=== PATIENT | female | born 1955 | race Caucasian/White ===

== ENCOUNTER 2021-05-12 20:54 | Observation (INO) | payer OTHER, MEDICARE ==
[2021-05-12] MEDS ORDERED: Sodium Chloride 0.9% 10 ML Syringe FLUSH PRN (20:57)
[2021-05-12] MEDS ORDERED: Sodium Chloride 0.9% 1,000 ML IV ONE ×2 (21:08→22:45)
[2021-05-12] MEDS ORDERED: cefTRIAXone 1 GM in Sodium Chloride 0.9% 100 ML IV ONE (21:09)
--- NOTE | 2021-05-12 21:17 | EDM.PDOC ---
ED HPI GENERAL MEDICAL PROBLEM - General Chief Complaint: Genitourinary Problem Stated Complaint: UTI Time Seen by Provider: 05/12/21 21:09 Source of Information: Reports: Patient History Limitations: Reports: No Limitations - History of Present Illness INITIAL COMMENTS - FREE TEXT/NARRATIVE: Patient comes to ER with ongoing UTI complaints. Was seen at [facility] and started on Macrobid for UTI. She thinks she was diagnosed with an E Coli UTI. Was not getting better and course of Macrobid extended. Is still having some burning with urination. Today had low grade temp of 101 about one hour ago which was accompanied by chills. Now starting to have some bilateral low back discomfort. Mild headache. Decreased appetite. Nausea earlier but no vomiting/diarrhea. No hematuria. - Related Data Allergies Allergy/AdvReac Type Severity Reaction Status Date / Time No Known Allergies Allergy Verified 05/12/21 20:57 Home Meds: Home Meds Aspirin 81 mg PO DAILY 05/12/21 [History] Cholecalciferol (Vitamin D3) [Vitamin D3] 2,000 unit PO BID 05/12/21 [History] Fenofibrate Nanocrystallized [Tricor] 145 mg PO DAILY 05/12/21 [History] Furosemide 40 mg PO DAILY 05/12/21 [History] Levothyroxine [Synthroid] 50 mcg PO ACBREAKFAST 05/12/21 [History] Metoprolol Tartrate 12.5 mg PO DAILY@1800 05/12/21 [History] Metoprolol Tartrate 25 mg PO DAILY 05/12/21 [History] metFORMIN HCl [Metformin HCl] 500 mg PO BIDAC 05/12/21 [History] Past Medical History Cardiovascular History: Reports: High Cholesterol, Hypertension Endocrine/Metabolic History: Reports: Diabetes, Type II, Hypothyroidism Social & Family History - Family History Family Medical History: No Pertinent Family History - Tobacco Use Tobacco Use Status *Q: Former Tobacco User Tobacco Use Within Last Twelve Months: No Used Tobacco, but Quit: Yes Tobacco Use Comment: quit 40 years ago. Smoked for about one year per self report. - Caffeine Use Caffeine Use: Reports: Soda - Alcohol Use Alcohol Use History: No - Recreational Drug Use Recreational Drug Use: No Drug Use in Last 12 Months: No ED ROS GENERAL - Review of Systems Review Of Systems: See Below Constitutional: Reports: Fever, Chills, Malaise, Decreased Appetite. Denies: Night Sweats, Diaphoresis HEENT: Reports: No Symptoms, Glasses Respiratory: Reports: No Symptoms Cardiovascular: Reports: No Symptoms GI/Abdominal: Reports: Decreased Appetite, Nausea. Denies: Abdominal Pain, Constipation, Diarrhea, Difficulty Swallowing, Distension, Hematemesis, Hematochezia, Vomiting : Reports: Dysuria. Denies: Flank Pain, Frequency, Hematuria, Incontinence, Urinary Retention Musculoskeletal: Reports: Other (no acute changes from baseline other than bilateral low back discomfort) Skin: Reports: No Symptoms Neurological: Reports: Headache Psychiatric: Reports: No Symptoms ED EXAM, GENERAL - Physical Exam Exam: See Below Exam Limited By: No Limitations General Appearance: Alert, WD/WN, Other (appears mildly uncomfortable) Eye Exam: Bilateral Eye: EOMI, PERRL Ears: Normal External Exam, Normal Canal, Hearing Grossly Normal Nose: Normal Inspection, Normal Mucosa Throat/Mouth: Normal Inspection, Normal Lips, Normal Teeth, Normal Voice, No Airway Compromise Head: Atraumatic, Normocephalic Neck: Normal Inspection, Supple, Non-Tender, Full Range of Motion Respiratory/Chest: No Respiratory Distress, Lungs Clear, Normal Breath Sounds, No Accessory Muscle Use Cardiovascular: No Murmur, Tachycardia GI/Abdominal: Soft, Non-Tender, No Distention, Other (diminished bowel sounds throughout) (Female) Exam: Deferred Rectal (Female) Exam: Deferred Back Exam: Normal Inspection. No: CVA Tenderness (L), CVA Tenderness (R), Muscle Spasm, Paraspinal Tenderness, Vertebral Tenderness Extremities: Normal Range of Motion, Non-Tender, Slow Capillary Refill (3-4 seconds) Neurological: Alert, Oriented, Normal Cognition, Normal Gait, No Motor/Sensory Deficits Psychiatric: Normal Affect, Normal Mood Skin Exam: Warm, Dry, Intact, Normal Color Course - Orders/Labs/Meds Orders: Active Orders 24 hr Category Date Time Status CULTURE BLOOD [BC] Stat Lab 05/12/21 21:07 Ordered CULTURE BLOOD [BC] Stat Lab 05/12/21 21:20 Received UA W/MICROSCOPIC [URIN] Stat Lab 05/12/21 20:57 Ordered Sodium Chloride 0.9% [Normal Saline] 1,000 ml Med 05/12/21 21:08 Active IV .BOLUS Sodium Chloride 0.9% [Saline Flush] Med 05/12/21 20:57 Active 10 ml FLUSH ASDIRECTED PRN Blood Culture x2 Reflex Set [OM.PC] Stat Oth 05/12/21 21:07 Ordered Saline Lock Insert [OM.PC] Routine Oth 05/12/21 20:57 Ordered Medication Orders Acetaminophen (Acetaminophen 325 Mg Tab) 650 mg PO Q4H PRN PRN Reason: Pain (Mild 1-3)/fever Aspirin (Aspirin 81 Mg Tab.Chew) 81 mg PO DAILY JULIANNE Fenofibrate (Fenofibrate,Micronized 134 Mg Cap) 134 mg PO DAILY JULIANNE Furosemide (Furosemide 40 Mg Tab) 40 mg PO DAILY JULIANNE Sodium Chloride (Normal Saline) 1,000 mls @ 999 mls/hr IV .BOLUS ONE Stop: 05/12/21 22:08 Ceftriaxone Sodium 1 gm/ (Sodium Chloride) 100 mls @ 200 mls/hr IV Q24H JULIANNE Sodium Chloride (Normal Saline) 1,000 mls @ 250 mls/hr IV .BOLUS ONE Stop: 05/13/21 02:44 Sodium Chloride (Normal Saline) 1,000 mls @ 75 mls/hr IV ASDIRECTED JULIANNE Levothyroxine Sodium (Levothyroxine 50 Mcg Tab) 50 mcg PO ACBREAKFAST JULIANNE Metformin HCl (Metformin 500 Mg Tab) 500 mg PO BIDAC JULIANNE Metoprolol Tartrate (Metoprolol Tartrate 25 Mg Tab) 12.5 mg PO DAILY@1800 JULIANNE Metoprolol Tartrate (Metoprolol Tartrate 25 Mg Tab) 25 mg PO DAILY JULIANNE Ondansetron HCl (Ondansetron 4 Mg/2 Ml Sdv) 4 mg IVPUSH Q6H PRN PRN Reason: Nausea/Vomiting Sodium Chloride (Sodium Chloride 0.9% 10 Ml Syringe) 10 ml FLUSH ASDIRECTED PRN PRN Reason: Keep Vein Open Labs: Laboratory Tests 05/12/21 Range/Units 20:57 Urine Color Yellow Urine Appearance Clear Urine pH 7.0 (5.0-9.0) Ur Specific [place] 1.025 (1.005-1.030) Urine Protein Negative (NEGATIVE) mg/dL Urine Glucose (UA) Negative (NEGATIVE) mg/dL Urine Ketones Negative (NEGATIVE) mg/dL Urine Occult Blood Small H (NEGATIVE) Urine Nitrite Negative (NEGATIVE) Urine Bilirubin Negative (NEGATIVE) Urine Urobilinogen 0.2 (0.2-1.0) E.U./dL Ur Leukocyte Esterase Trace H (NEGATIVE) Meds: Medications Generic Name Dose Route Start Last Admin Trade Name Armando PRN Reason Stop Dose Admin Acetaminophen 650 mg 05/12/21 21:38 Acetaminophen 325 Mg Tab PO Q4H PRN Pain (Mild 1-3)/fever Aspirin 81 mg 05/13/21 08:00 Aspirin 81 Mg Tab.Chew PO DAILY [facility] Fenofibrate 134 mg 05/13/21 08:00 Fenofibrate,Micronized 134 Mg Cap PO DAILY JULIANNE Furosemide 40 mg 05/13/21 08:00 Furosemide 40 Mg Tab PO DAILY JULIANNE Sodium Chloride 1,000 mls @ 999 mls/hr 05/12/21 21:08 Normal Saline IV 05/12/21 22:08 .BOLUS ONE Ceftriaxone Sodium 1 gm/ 100 mls @ 200 mls/hr 05/13/21 21:00 Sodium Chloride IV Q24H JULIANNE Sodium Chloride 1,000 mls @ 250 mls/hr 05/12/21 22:45 Normal Saline IV 05/13/21 02:44 .BOLUS ONE Sodium Chloride 1,000 mls @ 75 mls/hr 05/13/21 03:00 Normal Saline IV ASDIRECTED [facility] Levothyroxine Sodium 50 mcg 05/13/21 07:30 Levothyroxine 50 Mcg Tab PO ACBREAKFAST [facility] Metformin HCl 500 mg 05/13/21 07:30 Metformin 500 Mg Tab PO BIDAC [facility] Metoprolol Tartrate 12.5 mg 05/13/21 18:00 Metoprolol Tartrate 25 Mg Tab PO DAILY@1800 [facility] Metoprolol Tartrate 25 mg 05/13/21 08:00 Metoprolol Tartrate 25 Mg Tab PO DAILY [facility] Ondansetron HCl 4 mg 05/12/21 21:38 Ondansetron 4 Mg/2 Ml Sdv IVPUSH Q6H PRN Nausea/Vomiting Sodium Chloride 10 ml 05/12/21 20:57 Sodium Chloride 0.9% 10 Ml Syringe FLUSH ASDIRECTED PRN Keep Vein Open Discontinued Medications Generic Name Dose Route Start Last Admin Trade Name Armando PRN Reason Stop Dose Admin Ceftriaxone Sodium 1 gm/ 100 mls @ 200 mls/hr 05/12/21 21:09 Sodium Chloride IV 05/12/21 21:38 ONETIME ONE - Re-Assessments/Exams Free Text/Narrative Re-Assessment/Exam: 05/12/21 21:23 Patient unable to void to provide new UA/UC. Suspect worsening UTI/possible pyelonephritis based on history/complaints/exam. Given that she has now developed a low grade temp/mild pulse elevation recommend observation admission for Rocephin and IV fluids. Patient agreeable. Blood cultures pending. 05/12/21 22:03 Normal WBC and Lactic. Patient able to void and give UA specimen. 05/12/21 22:08 UA continues to show presence of WBCs/RBCs/leuk esterase. UC pending. Departure - Departure Time of Disposition: 21:20 Disposition: Refer to Observation Condition: Good Clinical Impression: Pyelonephritis - Discharge Information *PRESCRIPTION DRUG MONITORING PROGRAM REVIEWED*: Not Applicable *COPY OF PRESCRIPTION DRUG MONITORING REPORT IN PATIENT GEOVANNY: Not Applicable - Problem List & Annotations (1) Pyelonephritis SNOMED Code(s): 60553894 Code(s): N12 - TUBULO-INTERSTITIAL NEPHRITIS, NOT SPCF ACUTE OR CHRONIC Status: Acute Priority: High Current Visit: Yes Annotation/Comment:: Suspected based on history/presentation/exam. Recent UTI treated with Macrobid, patient reports symptoms did not completely resolve. UA sample shows continued presence of WBCs/RBCs and leukocyte esterase. Initiate Rocephin IV. Assess patient response. (2) Dehydration, mild SNOMED Code(s): 5826332406916 Code(s): E86.0 - DEHYDRATION Status: Acute Priority: Medium Current Visit: Yes Annotation/Comment:: Decreased PO intake/low grade fever. Mild tachycardia. IV NS bolus ordered. (3) HTN (hypertension) SNOMED Code(s): 21888692 Code(s): I10 - ESSENTIAL (PRIMARY) HYPERTENSION Status: Chronic Priority: Low Current Visit: No Annotation/Comment:: Continue Metoprolol and laxis/home medication and observe trends. Qualifiers: Hypertension type: primary hypertension Qualified Code(s): I10 - Essential (primary) hypertension (4) DM type 2 (diabetes mellitus, type 2) SNOMED Code(s): 16357118 Code(s): E11.9 - TYPE 2 DIABETES MELLITUS WITHOUT COMPLICATIONS Status: Chronic Priority: Low Current Visit: No Annotation/Comment:: Continue Metformin Qualifiers: Diabetes mellitus group home insulin use: without group home use Diabetes mellitus complication status: without complication Qualified Code(s): E11.9 - Type 2 diabetes mellitus without complications (5) Hypothyroid SNOMED Code(s): 76129210 Code(s): E03.9 - HYPOTHYROIDISM, UNSPECIFIED Status: Chronic Priority: Low Current Visit: No Annotation/Comment:: Continue Synthroid/home medication Qualifiers: Hypothyroidism type: unspecified Qualified Code(s): E03.9 - Hypothyroidism, unspecified (6) Hyperlipidemia SNOMED Code(s): 75249820 Code(s): E78.5 - HYPERLIPIDEMIA, UNSPECIFIED Status: Chronic Priority: Low Current Visit: No Annotation/Comment:: Continue home medication Fenofibrate Qualifiers: Hyperlipidemia type: unspecified Qualified Code(s): E78.5 - Hyperlipidemia, unspecified - My Orders Last 24 Hours: My Active Orders 05/12/21 20:57 UA W/MICROSCOPIC [URIN] Stat Sodium Chloride 0.9% [Saline Flush] 10 ml FLUSH ASDIRECTED PRN Saline Lock Insert [OM.PC] Routine 05/12/21 21:07 CULTURE BLOOD [BC] Stat Blood Culture x2 Reflex Set [OM.PC] Stat 05/12/21 21:08 Sodium Chloride 0.9% [Normal Saline] 1,000 ml IV .BOLUS 05/12/21 21:20 CULTURE BLOOD [BC] Stat - Assessment/Plan Admission H&P: Please use this note as an admission H&P Last 24 Hours: My Active Orders 05/12/21 20:57 UA W/MICROSCOPIC [URIN] Stat Sodium Chloride 0.9% [Saline Flush] 10 ml FLUSH ASDIRECTED PRN Saline Lock Insert [OM.PC] Routine 05/12/21 21:07 CULTURE BLOOD [BC] Stat Blood Culture x2 Reflex Set [OM.PC] Stat 05/12/21 21:08 Sodium Chloride 0.9% [Normal Saline] 1,000 ml IV .BOLUS 05/12/21 21:20 CULTURE BLOOD [BC] Stat Assessment:: as above. Patient stable and suitable for general supervision Plan: as above. Anticipate 24-48 hours stay while assessing response to IV fluids and Rocephin. Patient can be discharged home on oral antibiotics once she is impro ving.
[2021-05-12] MEDS ORDERED: Ondansetron 4 MG/2 ML SDV IVPUSH PRN (21:38)
[2021-05-12 21:44] LABS: ANION GAP 12.7 meq/L (7-15)
[2021-05-12] MEDS ORDERED: Ketorolac 15 MG/ML SDV IVPUSH PRN (22:14)
[2021-05-13] MEDS ORDERED: Sodium Chloride 0.9% 1,000 ML IV SCH (03:00)
[2021-05-13] MEDS: Acetaminophen 325 MG Tab PO PRN ×2 (04:15→09:58)
[2021-05-13] MEDS ORDERED: metFORMIN 500 MG Tab PO SCH (07:30)
[2021-05-13] MEDS ORDERED: Levothyroxine 50 MCG Tab PO SCH (07:30)
[2021-05-13] MEDS ORDERED: Metoprolol Tartrate 25 MG Tab PO SCH ×2 (08:00→18:00)
[2021-05-13] MEDS ORDERED: Fenofibrate,Micronized 134 MG Cap PO SCH (08:00)
[2021-05-13] MEDS ORDERED: Furosemide 40 MG Tab PO SCH (08:00)
[2021-05-13] MEDS ORDERED: Aspirin 81 MG Tab.Chew PO SCH (08:00)
[2021-05-13] MEDS ORDERED: cefTRIAXone 1 GM in Sodium Chloride 0.9% 100 ML IV ONE (11:07)
--- NOTE | 2021-05-13 11:14 | PCM.DCSUM1 ---
Discharge Summary - Discharge Data Discharge Date: 05/13/21 Discharge Disposition: Home, Self-Care 01 Condition: Good - Referral to Home Health Primary Care Physician: DEBBY Suggs - Discharge Diagnosis/Problem(s) (1) Pyelonephritis SNOMED Code(s): 68572867 ICD Code: N12 - TUBULO-INTERSTITIAL NEPHRITIS, NOT [facility] ACUTE OR CHRONIC Status: Acute Priority: High Current Visit: Yes Problem Details: Suspected based on history/presentation/exam. Recent UTI treated with Macrobid, patient reports symptoms did not completely resolve. UA sample shows continued presence of WBCs/RBCs and leukocyte esterase. Initiate Rocephin IV. Assess patient response. (2) DM type 2 (diabetes mellitus, type 2) SNOMED Code(s): 46177333 ICD Code: E11.9 - TYPE 2 DIABETES MELLITUS WITHOUT COMPLICATIONS Status: Chronic Priority: Low Current Visit: No Problem Details: Continue Metformin Qualifiers: Diabetes mellitus ad terminal makeup operator insulin use: without senior care use Diabetes mellitus complication status: without complication Qualified Code(s): E11.9 - Type 2 diabetes mellitus without complications (3) HTN (hypertension) SNOMED Code(s): 19947551 ICD Code: I10 - ESSENTIAL (PRIMARY) HYPERTENSION Status: Chronic Priority: Low Current Visit: No Problem Details: Continue Metoprolol and laxis/home medication and observe trends. Qualifiers: Hypertension type: primary hypertension Qualified Code(s): I10 - Essential (primary) hypertension (4) Hyperlipidemia SNOMED Code(s): 57879689 ICD Code: E78.5 - HYPERLIPIDEMIA, UNSPECIFIED Status: Chronic Priority: Low Current Visit: No Problem Details: Continue home medication Fenofibrate Qualifiers: Hyperlipidemia type: unspecified Qualified Code(s): E78.5 - Hyperlipidemia, unspecified (5) Hypothyroid SNOMED Code(s): 07782677 ICD Code: E03.9 - HYPOTHYROIDISM, UNSPECIFIED Status: Chronic Priority: Low Current Visit: No Problem Details: Continue Synthroid/home medication Qualifiers: Hypothyroidism type: unspecified Qualified Code(s): E03.9 - Hypothyroidism, unspecified - Patient Summary/Data Hospital Course: This patient was admitted into the hospital overnight for concerns of pyelonephritis. This patient was treated in the outpatient setting with nitrofurantoin for a urinary tract infection. She ended up with systemic complaints of fever and flank pain. She had some nausea and vomiting. She had a normal white blood cell count as well as lactic acid when she was seen in the emergency department. Her urinalysis was concerning for a UTI and with the clinical picture for pyelonephritis. She was placed in observation overnight with Rocephin 1 g every 12. She was hydrated gently throughout the night. She feels quite a bit better this morning. She has not had a fever since in the night. She is eating and drinking no nausea or vomiting. Urine culture is still pending. We will discharge her home at this time on Keflex 500 mg p.o. 4 times daily for the next 7 days. Discussed with the patient the plan of care as well as when to return especially if she is unable to keep her meds down recurrent nausea vomiting and uncontrolled fever. She is comfortable with this plan and her questions are answered. - Patient Instructions Diet: Heart Healthy Diet, Drink 8-10+ Glasses/Day Other/Special Instructions: Home rest over the next few days. Drink plenty of fluids especially electrolyte containing materials as well as water. If you are not urinating every 2-3 hours you are not drinking enough fluids. Tylenol and/or ibuprofen as needed for pain fever discomfort. Keflex 500 mg 1 tab p.o. 4 times daily for the next 7 days. Prescription sent to [facility] pharmacy. Zofran 1 tablet by mouth every 6 hrs as needed for nausea vomiting. Rx sent to [facility]. Finish the antibiotics no matter what. Recheck in the clinic in 1 week for recheck. Return to the emergency department new or worsening symptoms especially uncontrolled fever recurrent nausea vomiting or inability to tolerate the antibiotics. - Discharge Plan *PRESCRIPTION DRUG MONITORING PROGRAM REVIEWED*: Not Applicable *COPY OF PRESCRIPTION DRUG MONITORING REPORT IN PATIENT GEOVANNY: Not Applicable Prescriptions/Med Rec: cephALEXin [Cephalexin] 500 mg PO QID #28 capsule Home Medications: Home Meds Aspirin 81 mg PO DAILY 05/12/21 [History] Cholecalciferol (Vitamin D3) [Vitamin D3] 2,000 unit PO BID 05/12/21 [History] Fenofibrate Nanocrystallized [Tricor] 145 mg PO DAILY 05/12/21 [History] Furosemide 40 mg PO DAILY 05/12/21 [History] Levothyroxine [Synthroid] 50 mcg PO ACBREAKFAST 05/12/21 [History] Metoprolol Tartrate 12.5 mg PO DAILY@1800 05/12/21 [History] Metoprolol Tartrate 25 mg PO DAILY 05/12/21 [History] metFORMIN HCl [Metformin HCl] 500 mg PO BIDAC 05/12/21 [History] cefTRIAXone [Rocephin] 1 gm IV Q24H vial 05/13/21 [Rx] cephALEXin [Cephalexin] 500 mg PO QID #28 capsule 05/13/21 [Rx] Forms: ED Department Discharge Referrals: Sosa Jimenez PA [Primary Care Provider] - - Discharge Summary/Plan Comment DC Time >30 min.: No Total # of Minutes for Discharge Time: 25 - General Info Date of Service: 05/13/21 Admission Dx/Problem (Free Text: Pyelonephritis diagnosed in the ER previously. Failed outpatient UTI with Macrobid Functional Status: Reports: Pain Controlled, Tolerating Diet, Ambulating, Urinating. Denies: New Symptoms - Review of Systems General: Reports: Fever (Subjective fever throughout the night. Fever of 101.4 at 0400 hrs. this morning. Normal temperature this morning.) HEENT: Reports: No Symptoms Pulmonary: Reports: No Symptoms Cardiovascular: Reports: No Symptoms Gastrointestinal: Reports: No Symptoms Genitourinary: Reports: Frequency. Denies: Dysuria, Burning, Urgency, Incontinence Musculoskeletal: Reports: Other (She does have some left flank pain) Skin: Reports: No Symptoms Neurological: Reports: No Symptoms Psychiatric: Reports: No Symptoms - Patient Data Vitals - Most Recent: Last Vital Signs Temp 99.2 F 05/13/21 07:34 Pulse 101 H 05/13/21 07:34 Resp 18 05/13/21 07:34 BP 152/94 H 05/13/21 07:34 Pulse Ox 94 L 05/13/21 07:34 Weight - Most Recent: 140 lb I&O - Last 24 hours: Intake & Output 05/12/21 05/13/21 05/13/21 22:59 06:59 14:59 Intake Total 2252 Balance 2252 Lab Results - Last 24 hrs: Laboratory Results - last 24 hr 05/12/21 05/12/21 05/12/21 Range/Units 20:57 21:20 21:20 WBC 9.4 (4.0-10.2) K/uL RBC 4.40 (3.77-5.09) M/uL Hgb 12.2 (11.7-15.5) g/dL Hct 38.0 (34.0-46.0) % MCV 86.4 (84.0-98.0) fL MCH 27.7 L (28.2-33.3) pg MCHC 32.1 (31.7-36.0) g/dL RDW 13.4 (11.2-14.1) % Plt Count 317 (150-350) K/uL Neut % (Auto) 88.6 H (45.0-80.0) % Lymph % (Auto) 2.2 L (10.0-50.0) % Lucas % (Auto) 5.9 (2.0-14.0) % Eos % (Auto) 3.1 (0.0-5.0) % Baso % (Auto) 0.2 (0.0-2.0) % Neut # (Auto) 8.28 H (1.40-7.00) K/uL Lymph # (Auto) 0.21 L (0.50-3.50) K/uL Lucas # (Auto) 0.55 (0.00-1.00) K/uL Eos # (Auto) 0.29 (0.00-0.50) K/uL Baso # (Auto) 0.02 (0.00-0.20) K/uL Sodium 137 (136-145) mmol/L Potassium 3.6 (3.5-5.1) mmol/L Chloride 100 (98-107) mmol/L Carbon Dioxide 24.3 (21.0-32.0) mmol/L Anion Gap 12.7 (7-15) meq/L BUN 16 (7-18) mg/dL Creatinine 1.12 (0.51-1.17) mg/dL Est Cr Clr Drug Dosing 43.86 mL/min Estimated GFR (MDRD) 49 mL/min Glucose 215 H (70-99) mg/dL POC Glucose (70-99) mg/dL Lactic Acid (0.4-2.0) mmol/L Calcium 9.8 (8.5-10.1) mg/dL Magnesium 1.8 (1.8-2.4) mg/dL Total Bilirubin 0.3 (0.2-1.0) mg/dL AST 37 (15-37) U/L ALT 32 (12-78) U/L Alkaline Phosphatase 69 (46-116) IU/L Total Protein 8.2 (6.4-8.2) g/dL Albumin 4.0 (3.4-5.0) g/dL Specimen Type Urinblad Urine Color Yellow Urine Appearance Clear Urine pH 7.0 (5.0-9.0) Ur Specific [place] 1.025 (1.005-1.030) Urine Protein Negative (NEGATIVE) mg/dL Urine Glucose (UA) Negative (NEGATIVE) mg/dL Urine Ketones Negative (NEGATIVE) mg/dL Urine Occult Blood Small H (NEGATIVE) Urine Nitrite Negative (NEGATIVE) Urine Bilirubin Negative (NEGATIVE) Urine Urobilinogen 0.2 (0.2-1.0) E.U./dL Ur Leukocyte Esterase Trace H (NEGATIVE) Urine RBC 5-10 H /HPF Urine WBC 5-10 H /HPF Ur Epithelial Cells Few /LPF Urine Bacteria Few (NONE TO FEW) /HPF Urine Mucus Few H (NEGATIVE) /LPF 05/12/21 05/13/21 Range/Units 21:20 07:39 WBC (4.0-10.2) K/uL RBC (3.77-5.09) M/uL Hgb (11.7-15.5) g/dL Hct (34.0-46.0) % MCV (84.0-98.0) fL MCH (28.2-33.3) pg MCHC (31.7-36.0) g/dL RDW (11.2-14.1) % Plt Count (150-350) K/uL Neut % (Auto) (45.0-80.0) % Lymph % (Auto) (10.0-50.0) % Lucas % (Auto) (2.0-14.0) % Eos % (Auto) (0.0-5.0) % Baso % (Auto) (0.0-2.0) % Neut # (Auto) (1.40-7.00) K/uL Lymph # (Auto) (0.50-3.50) K/uL Lucas # (Auto) (0.00-1.00) K/uL Eos # (Auto) (0.00-0.50) K/uL Baso # (Auto) (0.00-0.20) K/uL Sodium (136-145) mmol/L Potassium (3.5-5.1) mmol/L Chloride (98-107) mmol/L Carbon Dioxide (21.0-32.0) mmol/L Anion Gap (7-15) meq/L BUN (7-18) mg/dL Creatinine (0.51-1.17) mg/dL Est Cr Clr Drug Dosing mL/min Estimated GFR (MDRD) mL/min Glucose (70-99) mg/dL POC Glucose 134 H (70-99) mg/dL Lactic Acid 1.5 (0.4-2.0) mmol/L Calcium (8.5-10.1) mg/dL Magnesium (1.8-2.4) mg/dL Total Bilirubin (0.2-1.0) mg/dL AST (15-37) U/L ALT (12-78) U/L Alkaline Phosphatase (46-116) IU/L Total Protein (6.4-8.2) g/dL Albumin (3.4-5.0) g/dL Specimen Type Urine Color Urine Appearance Urine pH (5.0-9.0) Ur Specific [place] (1.005-1.030) Urine Protein (NEGATIVE) mg/dL Urine Glucose (UA) (NEGATIVE) mg/dL Urine Ketones (NEGATIVE) mg/dL Urine Occult Blood (NEGATIVE) Urine Nitrite (NEGATIVE) Urine Bilirubin (NEGATIVE) Urine Urobilinogen (0.2-1.0) E.U./dL Ur Leukocyte Esterase (NEGATIVE) Urine RBC /HPF Urine WBC /HPF Ur Epithelial Cells /LPF Urine Bacteria (NONE TO FEW) /HPF Urine Mucus (NEGATIVE) /LPF Med Orders - Current: Current Medications Acetaminophen (Acetaminophen 325 Mg Tab) 650 mg PO Q4H PRN PRN Reason: Pain (Mild 1-3)/fever Last Admin: 05/13/21 09:58 Dose: 650 mg Documented by: Aspirin (Aspirin 81 Mg Tab.Chew) 81 mg PO DAILY [facility] Last Admin: 05/13/21 07:34 Dose: 81 mg Documented by: Fenofibrate (Fenofibrate,Micronized 134 Mg Cap) 134 mg PO DAILY [facility] Last Admin: 05/13/21 07:34 Dose: 134 mg Documented by: Furosemide (Furosemide 40 Mg Tab) 40 mg PO DAILY [facility] Last Admin: 05/13/21 07:33 Dose: 40 mg Documented by: Ceftriaxone Sodium 1 gm/ (Sodium Chloride) 100 mls @ 200 mls/hr IV Q24H [facility] Sodium Chloride (Normal Saline) 1,000 mls @ 75 mls/hr IV ASDIRECTED [facility] Last Admin: 05/13/21 06:51 Dose: 75 mls/hr Documented by: Ceftriaxone Sodium 1 gm/ (Sodium Chloride) 100 mls @ 200 mls/hr IV ONETIME ONE Stop: 05/13/21 11:36 Ketorolac Tromethamine (Ketorolac 15 Mg/Ml Sdv) 15 mg IVPUSH Q6H PRN PRN Reason: Pain Stop: 05/17/21 22:14 Last Admin: 05/13/21 00:25 Dose: 15 mg Documented by: Levothyroxine Sodium (Levothyroxine 50 Mcg Tab) 50 mcg PO ACBREAKFAST [facility] Last Admin: 05/13/21 07:34 Dose: 50 mcg Documented by: Metformin HCl (Metformin 500 Mg Tab) 500 mg PO BIDAC [facility] Last Admin: 05/13/21 07:33 Dose: 500 mg Documented by: Metoprolol Tartrate (Metoprolol Tartrate 25 Mg Tab) 12.5 mg PO DAILY@1800 [facility] Metoprolol Tartrate (Metoprolol Tartrate 25 Mg Tab) 25 mg PO DAILY [facility] Last Admin: 05/13/21 07:33 Dose: 25 mg Documented by: Ondansetron HCl (Ondansetron 4 Mg/2 Ml Sdv) 4 mg IVPUSH Q6H PRN PRN Reason: Nausea/Vomiting Sodium Chloride (Sodium Chloride 0.9% 10 Ml Syringe) 10 ml FLUSH ASDIRECTED PRN PRN Reason: Keep Vein Open Discontinued Medications Sodium Chloride (Normal Saline) 1,000 mls @ 999 mls/hr IV .BOLUS ONE Stop: 05/12/21 22:08 Last Admin: 05/12/21 22:03 Dose: 999 mls/hr Documented by: Ceftriaxone Sodium 1 gm/ (Sodium Chloride) 100 mls @ 200 mls/hr IV ONETIME ONE Stop: 05/12/21 21:38 Last Admin: 05/12/21 22:08 Dose: 200 mls/hr Documented by: Sodium Chloride (Normal Saline) 1,000 mls @ 250 mls/hr IV .BOLUS ONE Stop: 05/13/21 02:44 Last Admin: 05/13/21 02:36 Dose: 250 mls/hr Documented by: - Exam General: Reports: Alert, Oriented HEENT: Reports: Pupils Equal, Pupils Reactive Neck: Reports: Supple Lungs: Reports: Clear to Auscultation, Normal Respiratory Effort Cardiovascular: Reports: Regular Rate, Regular Rhythm GI/Abdominal Exam: Normal Bowel Sounds, Soft, Non-Tender (Female) Exam: Deferred Rectal (Female) Exam: Deferred Back Exam: Reports: CVA Tenderness (L). Denies: CVA Tenderness (R), Decreased Range of Motion, Muscle Spasm, Paraspinal Tenderness, Vertebral Tenderness Extremities: Normal Inspection, Normal Range of Motion, Non-Tender, No Pedal Edema, Normal Capillary Refill Skin: Reports: Warm, Dry, Intact Neurological: Reports: No New Focal Deficit Psy/Mental Status: Reports: Alert, Normal Affect, Normal Mood
[2021-05-13] MEDS ORDERED: cefTRIAXone 1 GM in Sodium Chloride 0.9% 100 ML IV SCH (21:00)
== END 2021-05-13 12:35 | disposition home or self-care (01) ==
LOC: LL.ED 20:54 → LL.MS 21:15
PROVIDERS: ADMIT Emergency Medicine; ATTEND Emergency Medicine
DX: N12 Tubulo-interstitial nephritis, not specified as acute or chronic (principal); N39.0 Urinary tract infection, site not specified; B96.20 Unspecified Escherichia coli [E. coli] as the cause of diseases classified elsewhere; E86.0 Dehydration; E78.00 Pure hypercholesterolemia, unspecified; I10 Essential (primary) hypertension; E11.9 Type 2 diabetes mellitus without complications; E03.9 Hypothyroidism, unspecified; Z79.84 Long term (current) use of oral hypoglycemic drugs; Z79.82 Long term (current) use of aspirin; Z79.899 Other long term (current) drug therapy; Z79.890 Hormone replacement therapy; Z87.891 Personal history of nicotine dependence
CPT/HCPCS: 36415; 80053; 81001; 82947; 83605; 83735; 85025; 87040; 87086; 96365; 96375; 96376; 99217; 99220; 99284; A9270-GY; G0378; J0696; J1885; J7030